=== PATIENT | male | born 1985 | race Caucasian/White ===

== ENCOUNTER 2016-08-29 14:36 | Day surgery (SDC) | payer OTHER, MEDICAID ==
[~2016-08-29] VITALS: Ht 170.2 cm; Wt 114.2 kg
--- NOTE | ~2016-08-29 | OR ---
[facility]GE[facility] 31 Y [address] ROOM: [place] [address] [place]ATION: [facility] [place] DATE: 08/29/2016 OR/Procedure Report DISCHARGE DATE: 08/29/2016 FAMILY PHYSICIAN: Moy Khnana MD ATTENDING PHYSICIAN: Francisco Quintero SURGEON: Francisco Quintero MD PIECE MAKER: None. DATE OF PROCEDURE: 08/29/2016 PREOPERATIVE DIAGNOSIS: Left knee symptomatic medial meniscus tear with mechanical symptoms. POSTOPERATIVE DIAGNOSIS: Left knee symptomatic medial meniscus tear with mechanical symptoms. PROCEDURE: 1. Left knee arthroscopy. 2. Partial medial meniscectomy. 3. Extensive debridement, and chondroplasty in medial and patellofemoral compartments with excision of hypertrophic fat pad. ANESTHESIA: General tracheal anesthesia. FLUIDS: See Anesthesia report. EBL: Minimal. TOURNIQUET: Left proximal thigh at 250 mmHg. SPECIMEN: None. COMPLICATIONS: None. DISPOSITION: Stable in PACU. COUNTS: All counts correct. INDICATIONS: Mr. Brooke is a pleasant 31-year-old gentleman, who underwent the noted procedures above. The risks, benefits, and alternatives of pursuing surgical intervention were discussed with the patient in detail. He elected to proceed with surgery as noted above. Anesthesia was consulted for their perioperative evaluation of the patient. I marked the left knee indicating the correct operative site. OPERATIVE REPORT IN DETAIL: The patient was taken from the holding area to PAT[facility]'S NAME[facility]GE[facility] 31 Y [address] ROOM: [place] [address] LOCATION: [facility] [place] ADMIT DATE: 08/29/2016 OR/Procedure Report DISCHARGE DATE: 08/29/2016 FAMILY PHYSICIAN: Moy Khanna MD ATTENDING PHYSICIAN: Francisco Quintero the operating room. A time-out was performed. General endotracheal anesthesia was administered. 2 g of Ancef antibiotic for perioperative prophylaxis. The left lower extremity was then prepped and draped in a sterile fashion. I turned my attention to the left knee. I began with an anterolateral parapatellar portal. I performed a diagnostic arthroscopy and took pictures. I identified an anterior horn of the medial meniscus tear and evidence of a hypertrophic fat pad and a fair amount of synovitis in the joint. I then introduced a medial portal and placed my shaver. I used the shaver to shape the anterior horn of the medial meniscus back to a stable base. I excised the hypertrophic fat pad, and I performed a chondroplasty in the medial and patellofemoral compartments where there is at least grade 2 cartilaginous changes in the patellofemoral compartment at the level of the underside of the patella and femoral trochlea and in the medial compartment of the distal femoral articulation and in the proximal tibia articulation. The cruciate ligaments were intact and identified. The lateral compartment was free of meniscus tear or chondral disease. No loose bodies in the joint were identified. All the fluid was then drained from the joint. A 2-0 nylon suture was used in a portal stitch fashion to approximate the 2 arthroscopic portal holes. Lidocaine anesthetic was injected around the incision as a maryuri-incisional anesthetic. Sterile dressings were then placed in the form of Xeroform, followed by 4x4 and Webril. The tourniquet was then let down. The compressive dressing was placed from the foot up to the proximal thigh using Webril and Jayden bandage. There were no intraoperative complications noted. IMPRESSION: The patient is status post the noted procedures above. PLAN: The patient will be weightbearing as tolerated in the left lower extremity. Postoperative pain control will be in the form of Percocet, and DVT prophylaxis in the form of aspirin. He will be discharged home from the PACU provided he meets PACU discharge criteria. He will follow up with me in 2 weeks for his first postoperative visit. FRANCISCO QUINTERO MD RCD/modl PATIENT'S NAME: MANAV SIFUENTES [facility] AGE: 31 Y [address] ROOM: [place], [place] [address] LOCATION: [facility] [place] ADMIT DATE: 08/29/2016 OR/Procedure Report DISCHARGE DATE: 08/29/2016 FAMILY PHYSICIAN: Moy Khanna MD ATTENDING PHYSICIAN: Francisco Quintero /[id number] d: 08/30/16 0001 t: 08/30/16 0817, OPERATIVE SUMMARY
[~2016-08-29 14:36] MED LIST: BYSTOLIC10 MG PO; GABAPENTIN300 MG PO; OMEPRAZOLE40 MG PO
[2016-08-29] MEDS ORDERED: PERCOCET 5-3251 EACH PO (19:22)
[2016-08-29] MEDS ORDERED: ASPIRIN325 MG PO (19:23)
== END 2016-08-29 20:20 | disposition disaster alternative care site (69) ==
LOC: GSDC 14:36
PROC: 0SBD4ZZ Excision of Left Knee Joint, Percutaneous Endoscopic Approach (ICD-10-PCS; principal; 2016-08-29)
PROC: 0SBD4ZZ Excision of Left Knee Joint, Percutaneous Endoscopic Approach (ICD-10-PCS; 2016-08-29)
DX: S83.242A Other tear of medial meniscus, current injury, left knee, initial encounter (principal); I49.9 Cardiac arrhythmia, unspecified; Z95.0 Presence of cardiac pacemaker; Z86.79 Personal history of other diseases of the circulatory system; V89.2XXA Person injured in unspecified motor-vehicle accident, traffic, initial encounter
CPT/HCPCS: J0690; J2001; J2550; J7120